=== PATIENT | male | born 1995 | race Caucasian/White ===

== ENCOUNTER 2020-05-13 22:44 | Emergency (ER) | payer MEDICAID ==
[~2020-05-13] VITALS: Ht 175.3 cm; Wt 59.1 kg
[2020-05-13 22:51] VITALS: Ht 175.3 cm; Wt 59.1 kg
[2020-05-13 23:42] VITALS: BP 111/61
== END 2020-05-14 00:36 | disposition home or self-care (01) ==
LOC: ED 22:44
DX: S01.81XA Laceration without foreign body of other part of head, initial encounter (principal); S63.611A Unspecified sprain of left index finger, initial encounter; W17.89XA Other fall from one level to another, initial encounter; Y93.89 Activity, other specified; Y92.89 Other specified places as the place of occurrence of the external cause; Y99.8 Other external cause status
CPT/HCPCS: 90715; A4570; J2001

== ENCOUNTER 2020-05-23 23:12 | Emergency (ER) | payer MEDICAID ==
[~2020-05-23] VITALS: Ht 175.3 cm; Wt 58.5 kg
[2020-05-23 23:18] VITALS: Ht 175.3 cm; Wt 58.5 kg
[2020-05-24 00:12] VITALS: BP 124/70
== END 2020-05-24 00:12 | disposition home or self-care (01) ==
LOC: ED 23:12
DX: S01.112D Laceration without foreign body of left eyelid and periocular area, subsequent encounter (principal); X58.XXXD Exposure to other specified factors, subsequent encounter